=== PATIENT | male | born 2000 | race African-American/Black ===

== ENCOUNTER 2023-12-17 16:35 | Emergency (ER) | payer OTHER, SELFPAY ==
--- NOTE | ~2023-12-17 | XR_ITS ---
EXAM: XR foot LT min 3V DATE: 12/17/2023 20:52 HISTORY: PT STEPPED ON TOOTHPICK THIS MORNING . COMPARISON: None available. FINDINGS: Normal mineralization. No fracture or dislocation. No lytic or blastic lesion. Joint space s are maintained. No erosion or periosteal change. Soft tissues within normal limits. IMPRESSION: No radiopaque foreign body detected. Consider sonography of further evaluation. Reviewed, dictated and finalized at location [facility]
[2023-12-17 16:50] VITALS: BP 143/76; PULSE 64; RESP 16; TEMP 37.2; O2SAT 97
[2023-12-17] MEDS: HYDROcodone/acetaminophen (*CRX) 5-325 MG TABLET 2 TAB PO (19:46)
[2023-12-17] MEDS: LIDO 1%/EPINEPHRINE 1:100,000 20 ML VIAL 10 ML INFILTRATE (19:47)
--- NOTE | 2023-12-17 20:00 | ED.GENADULT ---
HPI - General Adult General Chief complaint: Skin/Abscess/Foreign Body Stated complaint: splinter in foot Time Seen by Provider: 12/17/23 18:51 History of Present Illness HPI narrative: This is a 23-year-old male presenting with foreign body. Patient was walking on a thick carpet when he had a pain in his foot. he looked his foot soft part of a wooden toothpick. He tried to get it out but just jammed deeper into his foot. He went to the urgent care where they did a cross incision but were unable to get out of the emergency department. Patient is up-to-date on shots per Related Data Allergies Allergy/AdvReac Type Severity Reaction Status Date / Time No Known Allergies Allergy Verified 12/17/23 19:46 Exam Narrative: APPEARANCE: No apparent distress. Head: atraumatic. EYES: EOMI, NOSE: Atraumatic NECK: Trachea midline RESPIRATORY: No increased rate of breathing CARDIOVASCULAR: RRR, ABDOMINAL: Non-distended MUSCULOSKELETAl: No obvious deformities NEURO: Alert. Moving 4/4 extremities SKIN:: patient has a cross shaped incision the bottom of his foot just under the 2nd toe. PSYCHIATRIC: Normal affect Course Vital Signs Vital signs: Vital Signs Temperature 98.9 F 12/17/23 16:50 Pulse Rate 64 12/17/23 16:50 Respiratory Rate 16 12/17/23 16:50 Blood Pressure 143/76 H 12/17/23 16:50 Pulse Oximetry 97 12/17/23 16:50 Oxygen Delivery Room Air 12/17/23 16:50 Temperature 98.9 F 12/17/23 16:50 Pulse Rate 64 12/17/23 16:50 Respiratory Rate 16 12/17/23 16:50 Blood Pressure 143/76 H 12/17/23 16:50 Pulse Oximetry 97 12/17/23 16:50 Oxygen Delivery Room Air 12/17/23 16:50 Procedures Foreign Body Removal Foreign Body #1: Foreign Body Removal Date: 12/17/23 Time Out Performed: yes Site: left and foot Description of foreign body: other (Toothpick) Technique: manual removal, removal with forceps, incision made to facilitate removal, irrigation and bedside ultrasound guidance Complications: bleeding Post-procedure exam: awake, alert, normal BP, normal HR and normal O2 sat Neurovascular: no change from pre-procedure Foreign Body Removal Narrative: Patient already had an X shaped incision from an outside urgent care. wound was explored by I was unable to locate a foreign body. I was not unable to visualize anything on ultrasound. Medical Decision Making MDM Narrative Medical decision making narrative: -Course: 23-year-old presenting with foreign body In his foot. He had already let 1 of his friends tried to dig it out and then went to an urgent care who also tried to remove it. He has an X shaped incision in his foot from . Wound was explored but I was unable to find any foreign body. Was unable to visualize on ultrasound. Patient placed on antibiotics. patient will be discharged with Podiatry follow-up. -DDX includes but is not limited to: Foreign body -Social determinants of health: works at [employer] -External Chart Review: urgent care note -Procedures: Foreign body removal-unsuccessful -Interventions: [place] 5 mg x 2, Keflex 500 mg -Shared decision making / Disposition: discharged with Podiatry follow-up -RX: Keflex, Motrin, Tylenol Vital Signs Vital Signs: Vital Signs Temperature 98.9 F 12/17/23 16:50 Pulse Rate 64 12/17/23 16:50 Respiratory Rate 16 12/17/23 16:50 Blood Pressure 143/76 H 12/17/23 16:50 Pulse Oximetry 97 12/17/23 16:50 Oxygen Delivery Room Air 12/17/23 16:50 Temperature 98.9 F 12/17/23 16:50 Pulse Rate 64 12/17/23 16:50 Respiratory Rate 16 12/17/23 16:50 Blood Pressure 143/76 H 12/17/23 16:50 Pulse Oximetry 97 12/17/23 16:50 Oxygen Delivery Room Air 12/17/23 16:50 Discharge Plan Discharge Clinical Impression: Foreign body Patient Disposition: Home, Self-Care Condition: Stable Instructions: Antibiotic Form, Punc
[2023-12-17] MEDS: CEPHALEXIN 500 MG CAPSULE PO (20:54)
== END 2023-12-17 22:15 | disposition home or self-care (01) ==
PROVIDERS: Emergency Provider Emergency Medicine
DX: S90.852A Superficial foreign body, left foot, initial encounter (principal); W45.8XXA Other foreign body or object entering through skin, initial encounter
CPT/HCPCS: 28190; 73630; 99283; A9270